=== PATIENT | male | born 1955 | race Caucasian/White ===

== ENCOUNTER 2021-05-05 08:58 | Outpatient (CLI) | payer MEDICARE, BC | END 2021-05-05 23:59 | disposition home or self-care (01) | LOC: RAD 08:58 | PROVIDERS: ATTEND Psychiatry & Neurology Neurology | DX: G40.009 Localization-related (focal) (partial) idiopathic epilepsy and epileptic syndromes with seizures of localized onset, not intractable, without status epilepticus (principal) | CPT/HCPCS: 95816 ==